=== PATIENT | female | born 1980 | race African-American/Black ===

== ENCOUNTER 2017-04-08 22:21 | Inpatient (IN) | payer SELFPAY ==
[~2017-04-08] VITALS: Ht 182.9 cm; Wt 96.8 kg
[2017-04-09] VITALS (14 sets, daily range): BP systolic 127–156; BP diastolic 87–786; Ht 182.9 cm; Wt 96.8 kg
[2017-04-09 00:58] LABS: BASOPHILS 0.1 % (0-2); EOSINOPHILS 0.7 % (0-7); HEMATOCRIT 35.7 % (36.0-48.0); HEMOGLOBIN 12.1 g/dL (12-16); IMMATURE GRANULOCYTES 0.2 % (0-5); LYMPHOCYTES 15.6 % (15-50); MCHC 33.9 g/dL (31.0-37.0); MCV 97.3 fL (80.0-100.0); MEAN PLATELET VOLUME 9.2 fL (7.4-10.4); MONOCYTES 5.5 % (2-11); NEUTROPHILS 77.9 % (40-80); PLATELET COUNT 238 10x3/uL (130-400); RBC 3.67 10x6/uL (4.00-5.40); RDW 11.8 % (11.5-14.5); WBC 13.6 10x3/uL (4.8-10.8)
[2017-04-09 01:06] LABS: APTT 24.4 SECONDS (22.8-39.4); INR 1.03 (0.85-1.17); PROTIME 13.4 SECONDS (11.6-15.0)
[2017-04-09 01:09] LABS: ALBUMIN 3.4 g/dL (3.4-5.0); BILIRUBIN - TOTAL 0.22 mg/dL (0.2-1.3); CALCIUM 8.1 mg/dL (8.5-10.1); CARBON DIOXIDE 26.1 mmol/L (21.0-32.0); CREATININE - SERUM 1.2 mg/dL (0.6-1.3); POTASSIUM - SERUM 3.1 mmol/L (3.5-5.1)
--- NOTE | 2017-04-09 04:34 | NUR ---
RECIEVED PT TO FLOOR FROM ED. ALERT AND ORIENTED AND ABLE TO VERBALIZE NEEDS. VISITORS ARE AT THE BEDSIDE. IV TO LEFT FOREARM INFUSING NS @ 75 FROM ED. PT STATES PAIN IS 5/10. SPLINT AND CAROLINE WRAP TO RIGHT ANKLE C/D/I. VSS. SCD PLACED TO LEFT LEG. NO NEEDS ARE VOICED. WILL MONITOR. SIDE RAILS ARE UP X 2. BED IS IN LOWEST POSITION. CALL LIGHT IN REACH.
--- NOTE | 2017-04-09 08:30 | NUR ---
ASSESSMENT COMPLETE. IV TO L FA PATENT. NS INFUSING AT 75 CC/HR VIA PUMP. SCD IN USE TO L LEFT. SPLINT IN USE TO R LEG. NPO FOR POSSIBLE SURGERY TODAY. DENIES ANY NEEDS AT PRESENT.
--- NOTE | 2017-04-09 08:35 | NUR ---
E [employer] SOLUTION ARCHITECT DEMEROL 10-10-200 SETUP FOR PAIN CONTROL.
--- NOTE | 2017-04-09 12:00 | NUR ---
RESTING QUIETLY IN BED. DENIES ANY NEEDS AT PRESENT.
[2017-04-09 14:41] LABS: UDS - AMPHET NEGATIVE QUAL (NEGATIVE); UDS - BARB NEGATIVE QUAL (NEGATIVE); UDS - BENZO NEGATIVE QUAL (NEGATIVE); UDS - COCAINE NEGATIVE QUAL (NEGATIVE); UDS - METH NEGATIVE QUAL (NEGATIVE); UDS - OPIATE POSITIVE QUAL (NEGATIVE); UDS - PCP NEGATIVE QUAL (NEGATIVE); UDS - THC NEGATIVE QUAL (NEGATIVE)
[2017-04-09 16:06] LABS: HCG URINE NEGATIVE (NEGATIVE)
--- NOTE | 2017-04-09 17:15 | NUR ---
OFF FLOOR TO OR VIA BED.
[2017-04-10] VITALS: BP 144/90
--- NOTE | 2017-04-10 03:00 | NUR ---
PATIENT IS RESTING QUIETLY WITH EYES CLOSED. RIGHT LEG ELEVATED ON 2 PILLOWS. PATIENT DENIES NEEDS AT THIS TIME. BED IN LOWEST POSITION, CALL LIGHT IN REACH. BED RAILS UP X'S 2.
[2017-04-10 04:00] VITALS: BP 138/87
[2017-04-10 05:19] LABS: BASOPHILS 0.1 % (0-2); EOSINOPHILS 0.1 % (0-7); HEMATOCRIT 33.8 % (36.0-48.0); HEMOGLOBIN 11.3 g/dL (12-16); IMMATURE GRANULOCYTES 0.3 % (0-5); LYMPHOCYTES 12.1 % (15-50); MCH 32.9 pg (26.0-34.0); MCHC 33.4 g/dL (31.0-37.0); MCV 98.5 fL (80.0-100.0); MEAN PLATELET VOLUME 9.2 fL (7.4-10.4); MONOCYTES 7.8 % (2-11); NEUTROPHILS 79.6 % (40-80); PLATELET COUNT 231 10x3/uL (130-400); RBC 3.43 10x6/uL (4.00-5.40); RDW 11.7 % (11.5-14.5); WBC 12.3 10x3/uL (4.8-10.8)
[2017-04-10 05:44] LABS: ALBUMIN 2.8 g/dL (3.4-5.0); BILIRUBIN - TOTAL 0.3 mg/dL (0.2-1.3); CALCIUM 7.9 mg/dL (8.5-10.1); CARBON DIOXIDE 23.2 mmol/L (21.0-32.0); PROTEIN - SERUM 6.2 g/dL (6.4-8.2)
[2017-04-10 05:51] LABS: ANION GAP 13.2 mmol/L (8-16); POTASSIUM - SERUM 4.4 mmol/L (3.5-5.1)
--- NOTE | 2017-04-10 07:40 | NUR ---
PT AOX4 RESP EVEN AND NONLABORED PT DENIES NEEDS AT THIS TIME SRX2 BED AT LOWEST SETTING CALL LIGHT WITHIN REACH WILL CONTINUE TO MONITOR IV TO LEFT FOREARM PATENT AND INTACT AT THIS TIME
[2017-04-10 08:42] VITALS: BP 135/88
[2017-04-10 11:56] VITALS: BP 156/68
[2017-04-10 15:06] VITALS: BP 159/96
[2017-04-10 20:00] VITALS: BP 130/86
--- NOTE | 2017-04-10 20:00 | NUR ---
ASSESSMENT PER FLOWSHEET. IV PATENT LEFT HAND OF NS AT 30CC'S/HR SITE CLEAR TECHNICAL WRITING LEAD/MGR OF DEMEROL IN USE WITH SETTINGS AT 10MG Q10 MIN W/200 Q4HR L/O. SPLINT CAST TO RT FOOT. ELEVATED ON PILLOW. C/O OF PAIN UNRELIEVED WITH TECHNICAL WRITING LEAD/MGR. TORADOL GIVEN PER WILLOW TRIPLETT LPN.
--- NOTE | 2017-04-10 22:00 | NUR ---
UP WITH CRUTCHES TO BR VOIDS WELL. SR UP X2 CALL LIGHT WITHIN REACH.
[2017-04-11] VITALS: BP 110/67
--- NOTE | 2017-04-11 | NUR ---
EYES CLOSED RESPIRATIONS WITH EASE AND UNLABORED.
[2017-04-11 04:00] VITALS: BP 117/76
[2017-04-11 05:55] LABS: BASOPHILS 0.1 % (0-2); EOSINOPHILS 2.7 % (0-7); HEMOGLOBIN 10.5 g/dL (12-16); IMMATURE GRANULOCYTES 0.3 % (0-5); LYMPHOCYTES 25.3 % (15-50); MCH 33.1 pg (26.0-34.0); MCHC 33.9 g/dL (31.0-37.0); MCV 97.8 fL (80.0-100.0); MEAN PLATELET VOLUME 9.2 fL (7.4-10.4); MONOCYTES 9.2 % (2-11); NEUTROPHILS 62.4 % (40-80); PLATELET COUNT 213 10x3/uL (130-400); RBC 3.17 10x6/uL (4.00-5.40); RDW 11.9 % (11.5-14.5); WBC 10.3 10x3/uL (4.8-10.8)
[2017-04-11 06:18] LABS: ALBUMIN 2.5 g/dL (3.4-5.0); ANION GAP 12.8 mmol/L (8-16); BILIRUBIN - TOTAL 0.22 mg/dL (0.2-1.3); CALCIUM 7.7 mg/dL (8.5-10.1); CARBON DIOXIDE 25.4 mmol/L (21.0-32.0); PROTEIN - SERUM 5.8 g/dL (6.4-8.2)
[2017-04-11 06:30] LABS: POTASSIUM - SERUM 3.2 mmol/L (3.5-5.1)
[2017-04-11] MEDS ORDERED: PERCOCET 10/3251 TA1 PO (07:34)
[2017-04-11] MEDS ORDERED: ASPIRIN81 MG PO (07:35)
--- NOTE | 2017-04-11 08:00 | NUR ---
AWAKE AND ALERT AT THIS TIME. BED ALARM ON. WIRE ROPE SLING MAKER IN USE FOR PAIN CONTROL. DENIES NEEDS AT THIS TIME. ASSESSMENT PERFORMED PER FLOWSHEET. CALL LIGHT IN REACH, WILL CONTINUE WITH PLAN OF CARE.
[2017-04-11 08:09] VITALS: BP 137/86
--- NOTE | 2017-04-11 09:14 | NUR ---
Patient Name: STEPHAN OLSON Admission Status: ER Accout number: [id number] Admission Date: 04-09-2017 : 1980 Admission Diagnosis:OTH FRACTURE OF UPPER AND LOWER END OF LEFT FIBULA, INI Attending: SUBHASH Current LOS: 2 Anticipated DC Date: 04-11-2017 Planned Disposition: Home Primary Insurance: UNINSURED DISCOUNT PLAN Discharge Planning Comments: CM MET WITH PATIENT REGARDING D/C NEEDS AND PLANS. SHE LIVES ALONE BUT WILL HAVE FAMILY AND FRIENDS TO HELP HER. PATIENT STATED THERE ARE NO STEPS OR STAIRS TO ENTER HOME. PATIENT WAS INDEPENDENT WITH HER CARE BEFORE THIS ACCIDENT SHE STATED. PATIENT DID PURCHASE HER CRUTCHES AND THEY ARE IN HER ROOM. PATIENTS PCP IS DR. STEPHENS ([employer]ES [employer] [facility]) AND WANTS TO USE [facility] [address] FOR HER PHARMACY. CM WILL CONTINUE TO FOLLOW PATIENT WITH D/C NEEDS AND PLANS. PATIENT IS DISCHARGING HOME TODAY AND FAMILY OR A FRIEND WILL DRIVE HER HOME. PCP [facility] [address] [phone] BELGICA SHARPE (DAUGHTER) [phone] Needle Valve Operator: Marybel Tran Is the patient Alert and Oriented? Yes 0 * How many steps to enter\exit or inside your home? 0 0 * PCP DR. STEPHENS ([employer]) 0 * Pharmacy [facility] [address] (1ST TIME TO USE) 0 * Preadmission Environment Home with Family 0 * ADLs Independent 0 * Equipment Crutch 0 * List name and contact numbers for known caregivers / representatives who currently or will assist patient after discharge: BELGICA SHARPE [phone] 0 * Community resources currently utilized None 0 * Additional services required to return to the preadmission environment? Yes 0 * Can the patient safely return to the preadmission environment? Yes 0 * Has this patient been hospitalized within the prior 30 days at any hospital? No 0
[2017-04-11] MEDS ORDERED: LISINOPRIL10 MG PO (10:11)
[2017-04-11] MEDS ORDERED: HCTZ25 MG PO (10:11)
[2017-04-11] MEDS ORDERED: POTASSIUM CHLO10 ME1 PO (10:11)
[2017-04-11] MEDS ORDERED: ROBAXIN-750750 MG PO (10:57)
--- NOTE | 2017-04-11 11:00 | NUR ---
IV TO LEFT HAND D/C WITH CATH TIP INTACT. DISCHARGE PAPERWORK REVIEWED. DENIES QUESTIONS OR CONCERNS. PT TO LICENSED PRACTICAL NURSE CLINIC NURSE PRESCRIPTION FOR MUSCLE RELAXER AT DR PATTON'S OFFICE. WILL D/C HOME WITH FAMILY MEMBER.
== END 2017-04-11 11:10 | disposition home or self-care (01) | DRG 494 ==
LOC: D.ER 22:21 → D.MS 04-09 03:28
PROVIDERS: Anesthesiology; Emergency Medicine; Orthopaedic Surgery; ADMIT Family Medicine
PROC: 0QSK04Z Reposition Left Fibula with Internal Fixation Device, Open Approach (ICD-10-PCS; 2017-04-09)
PROC: 0QSKXZZ Reposition Left Fibula, External Approach (ICD-10-PCS; principal; 2017-04-09 11:00)
DX: S82.832A Other fracture of upper and lower end of left fibula, initial encounter for closed fracture (principal); S93.432A Sprain of tibiofibular ligament of left ankle, initial encounter; X58.XXXA Exposure to other specified factors, initial encounter; E87.6 Hypokalemia; I10 Essential (primary) hypertension; F17.200 Nicotine dependence, unspecified, uncomplicated